=== PATIENT | female | born 2000 | race African-American/Black ===

== ENCOUNTER 2025-02-01 23:00 | Emergency (ER) | payer BC, OTHER ==
[2025-02-01 23:15] VITALS: TEMP 98.5
--- NOTE | 2025-02-01 23:40 | ERPHSYRPT ---
- History of Present Illness Time Seen by Provider: 02/01/25 23:37 Historian: patient Exam Limitations: no limitations Patient Subjective Stated Complaint: c/o abdominal and lower back pain Triage Nursing Assessment: patient brougght to ED by partner with c/o lower abdominal pain and lower back pain. patient rates pain 07/25, states she started her period today and that she was supposed to start next week. patient also states that she has random spotting over the past 2 years, but the pain has been continued to get worse. Patient denies being , she is currently sexually active, denies being on control. hypertensive, deneis V/D, states she has had nasuea, gait steady, patient doesn't appear to be in any distress at this time. Physician History: 24 years old with history of PCOS presented in the ER with complaints of bilateral lower abdominal pain with some back pain since yesterday. Patient report she started her period early then schedule next week. Reports having off-and-on cramping with periods but this is getting worse today to the point it is unbearable. Denies any urinary complaints. Reports associated nausea and dry heaving but no vomiting. Reports having metromenorrhagia and is supposed to take iron pill but not taking it. Allergies/Adverse Reactions: No Known Drug Allergies Allergy (Verified 02/01/25 23:18) Home Medications: Hydrocortisone 2.5% 30 gm [Anusol-Hc 2.5% Cream 30 gm] 1 applic TOP DAILY 02/01/25 [History] Metformin HCl 500 mg [Glucophage 500 MG] 500 mg PO DAILY 02/01/25 [History] Spironolactone 50 mg PO DAILY 02/01/25 [History] Hx Tetanus, Diphtheria Vaccination/Date Given: No Hx Influenza Vaccination/Date Given: No Hx Pneumococcal Vaccination/Date Given: No Travel Risk - International Travel Have you traveled outside of the country in past 3 weeks: No - Emerging Infectious Disease Are you exhibiting symptoms associated with any current EIDs: No Symptoms: Abdominal Pain - Review of Systems Constitutional: No Symptoms Eyes: No Symptoms Ears, Nose, & Throat: No Symptoms Respiratory: No Symptoms Cardiac: No Symptoms Abdominal/Gastrointestinal: Abdominal Pain, Nausea Genitourinary Symptoms: Vaginal Bleeding Musculoskeletal: Back Pain Skin: No Symptoms Neurological: No Symptoms Endocrine: No Symptoms Hematologic/Lymphatic: No Symptoms - Past Medical History Pertinent Past Medical History: Yes Endocrine Medical History: Other Other Medical History: prediabetic, PCOS, anemia, B-12 deficiency - Past Surgical History Past Surgical History: Yes Other Surgical History: wisdom teeth - Female History Hx Last Menstrual Period: now Hx Now: No - Social History Smoking Status: Never smoker Exposure to second hand smoke: No Drug Use: none - Social Determinants of Health Will the patient participate in the screening: Yes Do you worry about a steady place to live?: No Do you have any problems with any of the following?: No known problems In the past 12 months,have you had to go without utilities?: No Transportation Issues: No Has anyone in your support network made you feel unsafe?: No Have you or anyone in your house had to go w/o enough food: No - Nursing Vital Signs Nursing Vital Signs: Initial Vital Signs Temperature 98.5 F 02/01/25 23:06 Pulse Rate 82 02/01/25 23:06 Respiratory Rate 21 02/01/25 23:06 Blood Pressure 162/96 02/01/25 23:06 O2 Sat by Pulse Oximetry 99 02/01/25 23:06 Pain Scale Pain Intensity 4 - Physical Exam General Appearance: no apparent distress, alert Eye Exam: PERRL/EOMI Ears, Nose, Throat Exam: normal ENT inspection Neck Exam: normal inspection, non-tender, supple, full range of motion Respiratory Exam: normal breath sounds, lungs clear Cardiovascular Exam: regular rate/rhythm, normal heart sounds Gastrointestinal/Abdomen Exam: soft, normal bowel sounds, tenderness (Bilateral lower quadrant tenderness) Back Exam: normal inspection, normal range of motion, No CVA tenderness Extremity Exam: normal inspection, normal range of motion Neurologic Exam: oriented x 3, cooperative Skin Exam: normal color SpO2 Interpretation: normal SpO2: 99 O2 Delivery: Room Air Ordered Tests: Active Orders 24 hr Category Date Time Status NPO (ED) STAT Care 02/01/25 23:37 Completed CBC W DIFF Stat Lab 02/01/25 23:54 Completed CMP Stat Lab 02/01/25 23:54 Completed CULTURE,URINE Stat Lab 02/01/25 23:49 Received HCG QUALITATIVE, SERUM Stat Lab 02/01/25 23:54 Completed LIPASE Stat Lab 02/01/25 23:54 Completed UA W/RFX UR CULTURE Stat Lab 02/01/25 23:49 Completed Medication Summary Discontinued Medications Generic Name Dose Route Start Last Admin Trade Name Romana PRN Reason Stop Dose Admin Ketorolac Tromethamine 30 mg 02/01/25 23:37 02/01/25 23:50 Ketorolac Tromethamine 30 Mg/Ml Inj IV 02/01/25 23:38 30 mg STAT ONE Administration Ketorolac Tromethamine Confirm 02/01/25 23:46 Ketorolac Tromethamine 30 Mg/Ml Inj Administered 02/01/25 23:47 Dose 30 mg .ROUTE .STK-MED ONE Ondansetron HCl 4 mg 02/01/25 23:37 02/01/25 23:50 Ondansetron Hcl 4 Mg/2 Ml Vial IV 02/01/25 23:38 4 mg STAT ONE Administration Ondansetron HCl Confirm 02/01/25 23:46 Ondansetron Hcl 4 Mg/2 Ml Vial Administered 02/01/25 23:47 Dose 4 mg .ROUTE .STK-MED ONE Lab/Rad Data: Laboratory Result Diagrams 02/01/25 23:54 02/01/25 23:54 Laboratory Results 02/01/25 02/01/25 02/01/25 Range/Units 23:54 23:54 23:54 WBC 12.1 H (3.98-10.04) x10^3/uL RBC 4.79 (3.93-5.22) x10^6/uL Hgb 10.3 L (11.2-15.7) g/dL Hct 34.6 (34.1-44.9) % MCV 72.2 L (79.4-94.8) fL MCH 21.5 L (25.6-32.2) pg MCHC 29.8 L (32.2-35.5) g/dL RDW 17.6 H (11.7-14.4) % Plt Count 308 (182-369) x10^3/uL MPV 10.4 (9.4-12.3) fL Gran % 87.4 H (34.0-71.1) % Immature Gran % (Auto) 0.3 (0.001-0.429) % Nucleat RBC Rel Count 0.0 (0.00-0.2) % Eos # (Auto) 0.07 (0.04-0.36) x10^3/uL Immature Gran # (Auto) 0.04 H (0.001-0.031) x10^3u/L Absolute Lymphs (auto) 1.02 L (1.18-3.74) x10^3/uL Absolute Monos (auto) 0.34 (0.24-0.86) x10^3/uL Absolute Nucleated RBC 0.00 (0.00-0.012) x10^3u/L Lymphocytes % 8.5 L (19.3-51.7) % Monocytes % 2.8 L (4.7-12.5) % Eosinophils % 0.6 L (0.7-5.8) % Basophils % 0.4 (0.1-1.2) % Absolute Granulocytes 10.55 H (1.56-6.13) x10^3/uL Basophils # 0.05 (0.01-0.08) x10^3/uL Sodium 142 (135-145) mmol/L Potassium 3.8 (3.5-5.1) mmol/L Chloride 104 (98-107) mmol/L Carbon Dioxide 24 (22-30) mmol/L Anion Gap 17.5 H (5-15) MEQ/L BUN 13 (7-17) mg/dL Creatinine 0.74 (0.52-1.04) mg/dL Estimated GFR 116.5 ML/MIN Glucose 134 H (74-106) mg/dL Calcium 9.2 (8.4-10.2) mg/dL Total Bilirubin 0.40 (0.2-1.3) mg/dL AST 42 H (14-36) U/L ALT 25 (0-35) U/L Alkaline Phosphatase 79 (38-126) U/L Serum Total Protein 9.1 H (6.3-8.2) g/dL Albumin 4.9 (3.5-5.0) g/dL Lipase 108 (23-300) U/L Serum HCG, Qual NEGATIVE (NEGATIVE) Urine Color (Yellow) Urine Appearance (Clear) Urine pH (4.6-8.0) Ur Specific Milburn (1.005-1.030) Urine Protein (Negative) Urine Glucose (UA) (Negative) mg/dL Urine Ketones (Negative) Urine Blood (Negative) Urine Nitrite (Negative) Urine Bilirubin (Negative) Urine Urobilinogen (0.2) mg/dL Ur Leukocyte Esterase (Negative) U Hyaline Cast (Auto) (0-2) /LPF Urine Microscopic RBC (0-5) /HPF Urine Microscopic WBC (0-5) /HPF Ur Epithelial Cells (None Seen) /HPF Urine Bacteria (None Seen) /HPF Urine Culture Reflexed (NO) 02/01/25 Range/Units 23:49 WBC (3.98-10.04) x10^3/uL RBC (3.93-5.22) x10^6/uL Hgb (11.2-15.7) g/dL Hct (34.1-44.9) % MCV (79.4-94.8) fL MCH (25.6-32.2) pg MCHC (32.2-35.5) g/dL RDW (11.7-14.4) % Plt Count (182-369) x10^3/uL MPV (9.4-12.3) fL Gran % (34.0-71.1) % Immature Gran % (Auto) (0.001-0.429) % Nucleat RBC Rel Count (0.00-0.2) % Eos # (Auto) (0.04-0.36) x10^3/uL Immature Gran # (Auto) (0.001-0.031) x10^3u/L Absolute Lymphs (auto) (1.18-3.74) x10^3/uL Absolute Monos (auto) (0.24-0.86) x10^3/uL Absolute Nucleated RBC (0.00-0.012) x10^3u/L Lymphocytes % (19.3-51.7) % Monocytes % (4.7-12.5) % Eosinophils % (0.7-5.8) % Basophils % (0.1-1.2) % Absolute Granulocytes (1.56-6.13) x10^3/uL Basophils # (0.01-0.08) x10^3/uL Sodium (135-145) mmol/L Potassium (3.5-5.1) mmol/L Chloride (98-107) mmol/L Carbon Dioxide (22-30) mmol/L Anion Gap (5-15) MEQ/L BUN (7-17) mg/dL Creatinine (0.52-1.04) mg/dL Estimated GFR ML/MIN Glucose (74-106) mg/dL Calcium (8.4-10.2) mg/dL Total Bilirubin (0.2-1.3) mg/dL AST (14-36) U/L ALT (0-35) U/L Alkaline Phosphatase (38-126) U/L Serum Total Protein (6.3-8.2) g/dL Albumin (3.5-5.0) g/dL Lipase (23-300) U/L Serum HCG, Qual (NEGATIVE) Urine Color Yellow (Yellow) Urine Appearance Clear (Clear) Urine pH 7.5 (4.6-8.0) Ur Specific Milburn 1.020 (1.005-1.030) Urine Protein Trace A (Negative) Urine Glucose (UA) Negative (Negative) mg/dL Urine Ketones Trace A (Negative) Urine Blood Moderate A (Negative) Urine Nitrite Negative (Negative) Urine Bilirubin Negative (Negative) Urine Urobilinogen 0.2 (0.2) mg/dL Ur Leukocyte Esterase Negative (Negative) U Hyaline Cast (Auto) NONE SEEN (0-2) /LPF Urine Microscopic RBC >100 A (0-5) /HPF Urine Microscopic WBC 0-2 (0-5) /HPF Ur Epithelial Cells None Seen (None Seen) /HPF Urine Bacteria None Seen (None Seen) /HPF Urine Culture Reflexed YES (NO) - Progress Progress: improved Progress Note: 02/02/25 01:19 24-year-old is evaluated in the ER for lower abdominal pain/pelvic pain with cramping associated with menstrual cycle. Patient has history of irregular cycles with metromenorrhagia. She is given symptomatic treatment, on reevaluation she is feeling better. Workup showed white count of 12, chemistries fairly unremarkable. No UTI. CT abdomen pelvis without contrast is consistent with mesenteric adenitis and normal appendix, no colitis or any other acute intra-abdominal pelvic findings. Patient is recommended symptomatic/supportive care. Discussed signs symptoms of worsening needing return to ER which she seems understanding. Stable for discharge. Complexity of problem addressed: Moderate acute Complexity of data reviewed/analyzed: Moderate Risk of complication/morbidity/mortality with current condition: Low Counseled pt/family regarding: lab results, diagnosis, need for follow-up, rad results Medical Desision Making - Independent Historian Additional History obtained from: Spouse - Diagnostic Testing Diagnostic test were ordered, analyzed, and reviewed by me: Yes Radiological Interpretation: Reviewed by me, Teleradiologist Report - Risk of complications The pt has a mod risk of morbidity or mortality based on: Need for prescription drug management - Departure Departure Disposition: Home Clinical Impression: Lower abdominal pain, Menstrual syndrome, Dysfunctional uterine bleeding, Mesenteric adenitis Condition: Stable Critical Care Time: No Referrals: RAY VELÁZQUEZ MD [Primary Care Provider] - Follow up with PCP 1 day Instructions: Severe Abdominal Pain, Adult (DC), Mesenteric Lymphadenitis (DC) Additional Instructions: Take Tylenol/Pamperin as needed. Follow-up with your primary care/[facility] for reevaluation. Return to ER for intractable pain, heavy menstrual bleeding, feeling dizzy lightheaded etc.
[2025-02-01] MEDS ORDERED: Zofran 4 MG/2 ML VIAL ONE (23:46)
[2025-02-01] MEDS ORDERED: TORAdol 30 mg Injection ONE (23:46)
[2025-02-01] MEDS: Zofran 4 MG/2 ML VIAL IV ONE (23:50)
[2025-02-01] MEDS: TORAdol 30 mg Injection IV ONE (23:50)
[2025-02-01 23:56] LABS: Absolute Neutrophil Ct (ANC) 10.55 x10^3/uL (1.56-6.13); BASOPHIL % 0.4 % (0.1-1.2); Basophil (Absolute #) 0.05 x10^3/uL (0.01-0.08); Eosinophil % 0.6 % (0.7-5.8); Eosinophil (Absolute #) 0.07 x10^3/uL (0.04-0.36); Hematocrit 34.6 % (34.1-44.9); Hemoglobin 10.3 g/dL (11.2-15.7); IMMATURE GRAN # 0.04 x10^3u/L (0.001-0.031); IMMATURE GRAN % 0.3 % (0.001-0.429); Lymphocyte (Absolute #) 1.02 x10^3/uL (1.18-3.74); Lymphocytes % 8.5 % (19.3-51.7); Mean Cell Volume 72.2 fL (79.4-94.8); Mean Corpuscular Hemoglobin 21.5 pg (25.6-32.2); Mean Corpuscular Hgb Concent. 29.8 g/dL (32.2-35.5); Mean Platelet Volume 10.4 fL (9.4-12.3); Monocyte (Absolute #) 0.34 x10^3/uL (0.24-0.86); Monocytes % 2.8 % (4.7-12.5); Neutrophil % 87.4 % (34.0-71.1); Platelet Count 308 x10^3/uL (182-369); Red Blood Count 4.79 x10^6/uL (3.93-5.22); Red Cell Distribution Width 17.6 % (11.7-14.4); White Blood Count 12.1 x10^3/uL (3.98-10.04)
[2025-02-02 00:09] LABS: ALBUMIN 4.9 g/dL (3.5-5.0); ANION GAP 17.5 MEQ/L (5-15); BILIRUBIN,TOTAL 0.4 mg/dL (0.2-1.3); Calcium 9.2 mg/dL (8.4-10.2); Creatinine 1 0.74 mg/dL (0.52-1.04); EST GLOMERULAR FILTRATION RATE 116.5 ML/MIN; Potassium 3.8 mmol/L (3.5-5.1); Total Protein 9.1 g/dL (6.3-8.2)
[2025-02-02 00:14] LABS: HCG SERUM TEST NEGATIVE (NEGATIVE)
[2025-02-02 00:15] LABS: Appearance Clear (Clear); Bacteria None Seen /HPF (None Seen); Bilirubin Negative (Negative); Blood Moderate (Negative); Epithelial Cells None Seen /HPF (None Seen); Glucose, Urine Negative (Negative); Hyaline Casts NONE SEEN /LPF (0-2); Ketones Trace (Negative); Leukocyte Esterase Negative (Negative); Nitrite Negative (Negative); Ph 7.5 (4.6-8.0); Protein,Urine Dip Trace (Negative); RBC >100 /HPF (0-5); Urobilinogen 0.2 mg/dL (0.2); WBC 0-2 /HPF (0-5)
[2025-02-02 01:05] VITALS: BP 124/70; PULSE 71; RESP 22
[2025-02-02 01:10] VITALS: O2SAT 99
--- NOTE | 2025-02-02 01:13 | XRAY ---
CLINICAL HISTORY: lower abd pain COMPARISON: Comparison is made with [previous imaging studies, if available, otherwise state "No prior studies available for comparison."] TECHNIQUE: Non-contrast CT of the abdomen and pelvis was performed, with the following protocol: axial images, and reconstructed coronal and sagittal images. No intravenous contrast was administered. One of the following dose reduction techniques was utilized for this exam: Automated exposure control, adjustment of the mA and/or kV according to patient size, and use of iterative reconstruction. FINDINGS: Abdomen: Liver: Normal in size, shape, and density. No focal lesions, cysts, or masses were identified. Gallbladder and Biliary System: The gallbladder is normal in size and shape. No wall thickening, pericholecystic fluid, or gallstones were identified. Pancreas: Pancreatic head, body, and tail are visualized and appear normal in size and density. No pancreatic masses or calcifications were noted. Spleen: Normal in size, shape, and density. No splenic lesions or masses were identified. Kidneys and Adrenal Glands: Both kidneys are normal in size, shape, and position. Cortical thickness is within normal limits. No renal calculi or hydronephrosis. Adrenal glands are unremarkable. Appendix: The appendix is normal in size without jojo appendiceal fat stranding and without an appendicolith. No evidence of appendiceal abscess or perforation. Pelvis: Urinary Bladder: Normal in contour and wall thickness. No intraluminal lesions. Uterus: Normal in size and contour. No masses or abnormal thickening. Ovaries: Not well visualized but no gross abnormalities noted. Vagina: Normal in contour and wall thickness. Cervix: No evidence of mass or abnormal thickening. Peritoneal and Retroperitoneal Structures: No free fluid or abnormal fluid collections were identified within the abdomen or pelvis. Multiple enlarged mesenteric lymph nodes on the right iliac fossa. Bowel: The visualized bowel loops are normal in caliber and appearance. No evidence of bowel obstruction or wall thickening. Bones and Soft Tissues: Pelvic bones and soft tissues are unremarkable. No fractures or abnormal masses were identified. IMPRESSION: Multiple enlarged mesenteric lymph nodes on the right iliac fossa, likely denoting mesenteric adenitis. Appendix is normal. Electronically Signed by: Delroy Srivastava MD. (02/02/2025 01:08:53 EDT)
== END 2025-02-02 01:28 | disposition home or self-care (01) ==
LOC: ED 23:00
DX: N92.6 Irregular menstruation, unspecified (principal); R10.30 Lower abdominal pain, unspecified; N93.8 Other specified abnormal uterine and vaginal bleeding; I88.0 Nonspecific mesenteric lymphadenitis; R11.0 Nausea; Z79.84 Long term (current) use of oral hypoglycemic drugs; Z79.899 Other long term (current) drug therapy
CPT/HCPCS: 36415; 74176; 80053; 81001; 83690; 84703; 85025; 87086; 96374; 96375; 99284; J1885; J2405